=== PATIENT | male | born 1995 | race Caucasian/White ===

== ENCOUNTER 2021-10-27 10:43 | Outpatient (CLI) | payer BC, SELFPAY ==
--- NOTE | ~2021-10-27 | XR_ITS ---
EXAM: XR lumbar spine 2-3V DATE: 10/27/2021 11:20 HISTORY: Chronic Low back pain, getting worse, NKI . COMPARISON: None available. FINDINGS: 5 nonrib-bearing lumbar-type vertebral bodies. Pedicles intact. Normal vertebral body alig nment. Vertebral body heights preserved. Mild disc space narrowing, mild at L4-5 and moderate L5-S1. Mild L5-S1 facet sclerosis. No fracture or dislocation. IMPRESSION: Mild and moderate degenerative disc disease at L4-5 and L5-S1, respectively. Mild facet a rthropathy at L5-S1. Reviewed, dictated and finalized at location K. IMPRESSION: Mild and moderate degenerative disc disease at L4-5 and L5-S1, resp ectively. Mild facet arthropathy at L5-S1.
--- NOTE | ~2021-10-27 | XR_ITS ---
XR thoracic spine 3V DATE: 10/27/2021 11:20 INDICATION: Thoracic back pain, increasing in severity TECHNIQUE: AP, lateral, swimmer views COMPARISON: None FINDINGS: There is likely chronic mild anterior wedging of several mid to lower thoracic vertebral keaton dies. There is degenerative spurring. There is osteopenia. No fracture or bone destruction is evident. The thoracic pedicles appear intact. No paraspinal soft t issue thickening. IMPRESSION: Mild degenerative spurring Likely chronic mild anterior wedging of several mid to lower thoracic vertebral bodies. Diffuse diagn osis includes Scheuermann's disease, less likely old compression fractures. If further evaluation is indicated, consider thoracic spine MRI Reviewed, dictated and finalized at location A. IMPRESSION: Mild degenerative spurring Likely chronic mild anterior wedging of several mid to lower thoracic vertebral bodies. Diffuse diagnosis includes Scheuermann's disease, less likely old comp ression fractures. If further evaluation is indicated, consider thoracic spine MRI
== END 2021-10-27 10:44 | disposition home or self-care (01) ==
PROVIDERS: PCP Family Medicine; Visit Provider Family Medicine
DX: M54.50 Low back pain, unspecified (principal); M54.6 Pain in thoracic spine
CPT/HCPCS: 72072; 72100